=== PATIENT | female | born 1955 | race Caucasian/White ===

== ENCOUNTER 2016-10-14 09:05 | Outpatient (CLI) | payer OTHER | END 2016-10-14 09:06 | disposition home or self-care (01) | DX: N39.0 Urinary tract infection, site not specified (principal) ==

== ENCOUNTER 2017-04-22 15:12 | Outpatient (CLI) | payer OTHER ==
--- NOTE | 2017-04-23 09:29 | XRAY Report ---
THREE-VIEW LEFT ANKLE: 04/22/2017 CLINICAL INDICATION: Trauma, pain. FINDINGS: AP, lateral, oblique views of the left ankle demonstrate no evidence of fracture or disloc ation. Lateral soft tissue swelling is present. No radiopaque foreign body is seen in the soft tiss ues. IMPRESSION: LATERAL SOFT TISSUE SWELLING, BUT NO EVIDENCE OF ACUTE FRACTURE. JOB #: [id number] EXT JOB #:[id number]
--- NOTE | 2017-04-23 10:20 | XRAY Report ---
THREE VIEW LEFT FOOT: 04/22/2017 CLINICAL INDICATION: Pain. FINDINGS: AP, lateral, and oblique views of the left foot demonstrate no evidence of fracture or dis location. Mild degenerative changes are noted in the 1st metatarsophalangeal joint. No radiopaque for eign body is seen in the soft tissues. IMPRESSION: MILD OSTEOARTHRITIS. NO EVIDENCE OF FRACTURE. :9 JOB #: [id number] EXT JOB #:[id number]
== END 2017-04-22 15:13 | disposition home or self-care (01) ==
LOC: DI 15:12
PROVIDERS: ATTEND Nurse Practitioner Family
DX: S99.812A Other specified injuries of left ankle, initial encounter (principal); M19.072 Primary osteoarthritis, left ankle and foot

== ENCOUNTER 2020-10-07 16:43 | Emergency (ER) | payer MEDICARE, OTHER ==
[2020-10-07] MEDS ORDERED: DROPERIDOL 5 MG/2 ML VIAL IVP STA (17:24)
[2020-10-07] MEDS ORDERED: SODIUM CHLORIDE 0.9% 1,000 ML IV STA ×2 (17:25)
--- NOTE | 2020-10-07 17:29 | ED Physician Documentation ---
PD HPI FOCAL NEURO - Stated complaint Stated Complaint: BOSS,NOT THINKING CLEAR - Chief complaint Chief Complaint: Neuro - History obtained from History obtained from: Patient, Family - History of Present Illness Timing - onset: How many hours ago (9) Timing - duration: Hours (9) Timing - details: Gradual onset Severity of deficit: Mild Weakness: No: Face, Arm, Hand, Leg, Foot, Right, Left Numbness: Other (tingling R face and R arm) Associated symptoms: Headache. No: Nausea / vomiting, Seizure, Syncope, Fall, Head injury, Chest pain, Neck pain, Back pain, Fever Contributing factors: negative: Anticoagulated, Vascular dz, Atrial fibrillation, Prosthetic heart valve Baseline status: positive: A&OX3, ambulatory, indep - Additional information Additional information: Patient is a 64-year-old female with a history of migraine headaches. She states normally she does not get a headache with her migraines, she just experiences the aura symptoms. She states her usual symptoms are word finding difficulties, numbness on the right side of her face and right arm. She is experiencing the symptoms today along with a 5 out of 10 headache. Took an Aleve earlier today without relief. Symptoms started about 9 hours prior to arrival. She has had MRIs in the past and is followed by neurology at the [facility]. She states that the symptoms are very typical of her migraines, but seem to be more severe today. Review of Systems Ten Systems: 10 systems reviewed and negative Constitutional: denies: Fever, Chills Ears: denies: Ear pain Nose: denies: Rhinorrhea / runny nose, Congestion Respiratory: denies: Cough GI: denies: Abdominal Pain, Nausea, Vomiting, Diarrhea Skin: denies: Rash Musculoskeletal: denies: Neck pain, Back pain Neurologic: denies: Headache PD PAST MEDICAL HISTORY - Past Medical History Past Medical History: Yes Neuro: Headaches - Past Surgical History Past Surgical History: No - Present Medications Home Medications: Ambulatory Orders Medication Instructions Recorded Confirmed Verapamil HCl [Verelan] 120 mg PO DAILY 10/07/20 10/07/20 - Allergies Allergies/Adverse Reactions: Allergies Allergy/AdvReac Type Severity Reaction Status Date / Time No Known Drug Allergies Allergy Verified 10/07/20 17:08 - Living Situation Living Situation: reports: With family Living Arrangement: reports: At home - Social History Does the pt have substance abuse?: No - Family History Family history: reports: Non contributory PD ED PE NORMAL - Vitals Vital signs reviewed: Yes - General General: Alert and oriented X 3, No acute distress - HEENT HEENT: Atraumatic, PERRL, EOMI, Ears normal, Moist mucous membranes - Neck Neck: Supple, no meningeal sign - Cardiac Cardiac: RRR, Strong equal pulses - Respiratory Respiratory: No respiratory distress, Clear bilaterally - Abdomen Abdomen: Soft, Non tender, Non distended - Back Back: No spinal TTP - Derm Derm: Warm and dry - Extremities Extremities: No edema - Neuro Neuro: Alert and oriented X 3, 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, No motor deficit, No sensory deficit, Normal speech Eye Opening: Spontaneous Motor: Obeys Commands Verbal: Oriented GCS Score: 15 - Psych Psych: Normal mood, Normal affect NIHSS - Time Time: 17:30 - Level of Consciousness Level of consciousness: (0) Alert, Keenly responsive LOC Questions: (0) Answers both Q's correct LOC Commands: (0) Performs both correctly - Gaze Best Gaze: (0) Normal - Visual Visual: (0) No loss - Facial Palsy Facial Palsy: (0) Normal, symmetrical movement - Motor Arms (both separate) Motor Arm (right): (0) No drift Motor Arm (left): (0) No drift - Motor Legs (both separate) Motor Leg (right): (0) No drift Motor Leg (left): (0) No drift - Limb Ataxia Limb Ataxia: (0) Absent - Sensory Sensory: (0) Normal - Best Language Best Language: (1) [id number] - Dysarthria Dysarthria: (0) Normal - Extinction and Inattention (formally neg Extinction and inattention: (0) No abnormality - Total Score/Results Total Score/Result: 1 Results - Vitals Vitals: Vital Signs - 24 hr 10/07/20 10/07/20 10/07/20 16:55 17:22 19:08 Temperature 36.1 C L 36.4 C L 36.3 C L Heart Rate 118 H 76 95 Respiratory 16 12 16 Rate Blood Pressure 196/106 H 129/82 H 150/89 H O2 Saturation 100 100 100 10/07/20 20:01 Temperature 36.1 C L Heart Rate 93 Respiratory 16 Rate Blood Pressure 132/92 H O2 Saturation 99 Oxygen O2 Source Room air - EKG (time done) 1706 Rate: Rate (enter#) (125) Rhythm: Sinus tachycardia [place]: Normal Intervals: Normal CO QRS: Normal Ischemia: Non specific changes - Labs Labs: Laboratory Tests 10/07/20 10/07/20 10/07/20 17:36 17:36 18:44 WBC 7.2 RBC 4.49 Hgb 13.6 Hct 41.6 MCV 92.7 MCH 30.3 MCHC 32.7 RDW 14.2 Plt Count 261 MPV 10.3 Neut # (Auto) 5.8 Lymph # (Auto) 1.0 L Sullivan # (Auto) 0.3 Eos # (Auto) 0.0 Baso # (Auto) 0.0 Absolute Nucleated RBC 0.00 Nucleated RBC % 0.0 Sodium 134 L Potassium 3.9 Chloride 98 L Carbon Dioxide 23 Anion Gap 13.0 BUN 15 Creatinine 0.7 Estimated GFR (MDRD) 84 L Glucose 116 H Calcium 9.6 Total Bilirubin 0.7 AST 20 ALT 16 Alkaline Phosphatase 75 Total Protein 7.5 Albumin 4.7 Globulin 2.8 Albumin/Globulin Ratio 1.7 Urine Color YELLOW Urine Clarity CLEAR Urine pH 6.0 Ur Specific [place] <=1.005 Urine Protein NEGATIVE Urine Glucose (UA) NEGATIVE Urine Ketones TRACE Urine Occult Blood SMALL H Urine Nitrite NEGATIVE Urine Bilirubin NEGATIVE Urine Urobilinogen 0.2 (NORMAL) Ur Leukocyte Esterase NEGATIVE Urine RBC 0-5 Urine WBC 0-3 Ur Squamous Epith Cells RARE Squamous Urine Bacteria Rare Urine Mucus Few Strands Ur Microscopic Review INDICATED Urine Culture Comments NOT INDICATED - Rads (name of study) Angio head Radiology: Prelim report reviewed, EMP read contemporaneously, See rad report CT angio neck Radiology: Prelim report reviewed, EMP read contemporaneously, See rad report PD MEDICAL DECISION MAKING - ED course Complexity details: reviewed results, re-evaluated patient, considered di fferential, d/w patient ED course: Symptoms resolved in the emergency department with treatment of her headache with droperidol. Patient is fully back to normal. No acute findings on CT angiogram of the head or neck. No significant lab findings. This is consistent with her prior episodes. Unlikely to represent a stroke, more likely her usual complex migraine. Patient will follow up with her doctor for further care. Patient counseled regarding signs and symptoms for which I believe and urgent re-evaluation would be necessary. Patient with good understanding of and agreement to plan and is comfortable going home at this time This document was made in part using voice recognition software. While efforts are made to proofread this document, sound alike and grammatical errors may occur. CTA Head IMPRESSION: Negative examination as above CTA neck IMPRESSION: Mild bilateral carotid atherosclerosis. No hemodynamically significant stenosis. Departure - Departure Disposition: 01 Home, Self Care Clinical Impression: Migraine Qualifiers: Migraine type: unspecified Status migrainosus presence: without status migrainosus Intractability: not intractable Qualified Code(s): G43.909 - Migraine, unspecified, not intractable, without status migrainosus Condition: Good Instructions: ED Headache Migraine Follow-Up: Hollie Armstrong ARNP [Primary Care Provider] - Within 1 week Comments: Your testing does not show any acute abnormalities today. Your symptoms seem to have resolved with the treatment of your headache. This would be consistent with your prior history of migraines. Follow-up with your doctor for further care. Return if you worsen Discharge Date/Time: 10/07/20 20:02
[2020-10-07] MEDS ORDERED: IOVERSOL 320 100 ML VIAL IVP ONE ×2 (17:39→18:43)
[2020-10-07 17:55] LABS: BASOPHILS % (AUTO) 0.6 %; EOSINOPHILS % (AUTO) 0.4 %; HCT - HEMATOCRIT 41.6 % (37.0-47.0); HGB - HEMOGLOBIN 13.6 g/dL (12.0-16.0); LYMPHOCYTES % (AUTO) 13.4 %; MEAN CORPUSCULAR HEMOGLOBIN 30.3 pg (27.0-31.0); MEAN CORPUSCULAR HGB CONC 32.7 g/dL (32.0-36.0); MEAN CORPUSCULAR VOLUME 92.7 fL (81.0-99.0); MEAN PLATELET VOLUME 10.3 fL (7.9-10.8); MONOCYTES # (AUTO) 0.3 10^3/uL (0.0-1.0); MONOCYTES % (AUTO) 4.6 %; NEUTROPHILS # (AUTO) 5.8 10^3/uL (1.5-6.6); NEUTROPHILS % (AUTO) 80.7 %; PLT - PLATELET COUNT 261 10^3/uL (130-450); RED BLOOD COUNT 4.49 10^6/uL (4.20-5.40); RED CELL DISTRIBUTION WIDTH 14.2 % (12.0-15.0); WHITE BLOOD COUNT 7.2 x10^3/uL (4.8-10.8)
[2020-10-07 18:06] LABS: ALBUMIN 4.7 g/dL (3.2-5.5); ALBUMIN/GLOBULIN RATIO 1.7 (1.0-2.2); BILIRUBIN,TOTAL 0.7 mg/dL (0.2-1.0); CALCIUM 9.6 mg/dL (8.5-10.3); CREATININE 0.7 mg/dL (0.4-1.0); POTASSIUM 3.9 mmol/L (3.5-5.0); TOTAL PROTEIN 7.5 g/dL (6.7-8.2)
[2020-10-07 18:55] LABS: BILIRUBIN,URINE NEGATIVE (NEGATIVE); GLUCOSE, URINE (UA) NEGATIVE (NEGATIVE); KETONES,URINE (UA) TRACE mg/dL (NEGATIVE); LEUKOCYTE ESTERASE, URINE NEGATIVE (NEGATIVE); NITRITE,URINE NEGATIVE (NEGATIVE); OCCULT BLOOD,URINE SMALL (NEGATIVE); PROTEIN,URINE NEGATIVE (NEGATIVE); UROBILINOGEN,URINE 0.2 (NORMAL) E.U./dL (NORMAL)
[2020-10-07 18:56] LABS: CLARITY,URINE CLEAR (CLEAR)
[2020-10-07 19:07] LABS: RBC,URINE 0-5 /HPF (0-5); WBC,URINE 0-3 /HPF (0-5)
[2020-10-07 19:08] LABS: BACTERIA,URINE Rare /HPF (None Seen); MUCUS,URINE Few Strands; SQUAMOUS EPITHELIAL CELL,UR RARE Squamous (<= Few)
--- NOTE | 2020-10-07 19:37 | CT Report ---
PROCEDURE: ANGIO HEAD W/WO INDICATIONS: R sided numbness, word finding difficulty CONTRAST: IV CONTRAST: Optiray 320 ml: 80 PO CONTRAST: *NO PO CONTRAST TECHNIQUE: Precontrast 4.5 mm thick angled axial sections acquired from the foramen magnum to the vertex. Afte r the administration of intravenous contrast, 1 mm thick sections acquired through the [place] of [place] is. Postcontrast 4.5 mm thick sections then re-acquired from the foramen magnum to the vertex. 3-di mensional nhtanfl-ihvdvvofo-mpvwlobaxg (MIP) and/or volume rendering reformats were acquired of the c entral intracranial vasculature. For radiation dose reduction, the following was used: automated ex posure control, adjustment of mA and/or kV according to patient size. COMPARISON: None. FINDINGS: Image quality: Excellent. Anterior circulation: Intracranial internal carotid arteries are normal in size and flow. The flow within the paired anterior cerebral arteries is normal and symmetric. The flow within the middle cer ebral arteries is normal and symmetric. The anterior communicating artery is seen. No aneurysms are seen. Posterior circulation: Visualized portions of the vertebral arteries demonstrate normal caliber, and join to form a normal appearing basilar artery. Flow within the posterior cerebral arteries is norm al and symmetric. No aneurysms are seen. CSF spaces: Ventricles are normal in size and shape. Basal cisterns are patent. No extra-axial flu id collections. Brain: No midline shift. No intracranial bleeds or masses. Wu-white matter interface appears int act. Skull and face: Calvarium and facial bones appear intact, without suspicious lesions. Sinuses: Visualized sinuses and mastoids are clear. IMPRESSION: Negative examination as above Reviewed by: Donavon Ellis MD on 10/07/2020 7:36 PM PDT Approved by: Donavon Ellis MD on 10/07/2020 7:36 PM PDT Station ID: [id number]
--- NOTE | 2020-10-07 19:43 | CT Report ---
PROCEDURE: ANGIO NECK W INDICATIONS: R sided numbness, word finding difficulty CONTRAST: IV CONTRAST: Optiray 320 ml: 80 PO CONTRAST: *NO PO CONTRAST TECHNIQUE: After the administration of intravenous contrast, 1.5 mm axial sections acquired from the aortic arch to the [place] of [place]. Coronal 3-D maximum intensity projection (MIP) and/or volume rendering ref ormats were then performed. For radiation dose reduction, the following was used: automated exposur e control, adjustment of mA and/or kV according to patient size. COMPARISON: None. FINDINGS: Image quality: Excellent. Carotid system: The great vessels demonstrate a conventional anatomy as they arise from the aortic a rch. The origins of the common carotid arteries appear patent. The common carotid arteries demonstr ate normal calibers and courses. The bifurcation regions appear normal bilaterally. The internal ca rotid arteries demonstrate normal caliber and course. Mild bilateral carotid calcifications. Posterior circulation: The origins of the vertebral arteries appear patent. The more superior porti ons of the vertebral arteries demonstrate normal course and caliber. They join to form a normal appe aring basilar artery. Soft tissues: Visualized neck soft tissues demonstrate no suspicious abnormalities. The thyroid gla nd is normal in size. Bones: No suspicious bony lesions. Visualized cervical spine appears normally aligned. IMPRESSION: Mild bilateral carotid atherosclerosis. No hemodynamically significant stenosis. The estimate of stenosis included in the report of the imaging study was calculated using the NASCET method Reviewed by: Donavon Ellis MD on 10/07/2020 7:41 PM PDT Approved by: Donavon Ellis MD on 10/07/2020 7:41 PM PDT Station ID: [id number]
[2020-10-07 20:43] VITALS: BP 132/92
== END 2020-10-07 20:02 | disposition home or self-care (01) ==
LOC: ED 16:43
DX: G43.909 Migraine, unspecified, not intractable, without status migrainosus (principal); R00.0 Tachycardia, unspecified
CPT/HCPCS: 36415; 70496; 70498; 80053; 81001; 85025; 93005; 96361; 96374; 99284; Q9967; 81003; 87086

== ENCOUNTER 2023-07-28 15:00 | Emergency (ER) | payer MEDICARE, OTHER ==
[2023-07-28] MEDS ORDERED: DROPERIDOL 5 MG/2 ML VIAL IVP STA (15:14)
--- NOTE | 2023-07-28 15:18 | ED Physician Documentation ---
PD HPI ALTERED MENTAL STATUS - Stated complaint Stated Complaint: AMS,WEAKNESS,SPEECH - History obtained from History obtained from: Patient, Family () - Additional information Additional information: 67-year-old woman presents with for what he says is her typical migraine headache. Starting this morning around 730. She felt a headache and confusion and we're finding difficulties. states this is typical for her migraines and she takes something at home today, which did not help.She has had similar stroke like symptoms with migraines in the past. PD PAST MEDICAL HISTORY - Past Medical History Neuro: Headaches - Past Surgical History Past Surgical History: No - Present Medications Home Medications: Ambulatory Orders Medication Instructions Recorded Confirmed Verapamil HCl [Verelan] 120 mg PO DAILY 10/07/20 10/07/20 - Allergies Allergies/Adverse Reactions: Allergies Allergy/AdvReac Type Severity Reaction Status Date / Time No Known Drug Allergies Allergy Verified 07/28/23 15:18 - Social History Does the pt smoke?: No Smoking Status: Never smoker Does the pt have substance abuse?: No PD ED PE NORMAL - Vitals Vital signs reviewed: Yes - General General: Other (alert, can say name, otherwise not talking) - HEENT HEENT: PERRL, Pharynx benign - Neck Neck: Supple, no meningeal sign - Cardiac Cardiac: RRR, No murmur - Respiratory Respiratory: No respiratory distress - Abdomen Abdomen: Non tender - Neuro Neuro: No motor deficit, No sensory deficit Eye Opening: Spontaneous Motor: Obeys Commands Verbal: Confused GCS Score: 14 Results - Vitals Vitals: Vital Signs - 24 hr 07/28/23 07/28/23 07/28/23 15:04 16:13 18:27 Temperature 35.8 C L Heart Rate 104 H 96 99 Respiratory 17 15 14 Rate Blood Pressure 158/78 H 158/92 H 144/83 H O2 Saturation 100 100 95 Oxygen O2 Source Room air - Rads (name of study) CT of the head is unremarkable Relevant Findings:: Final report received, EMP independent interpretation of test PD Medical Decision Making - ED course ED course: 67-year-old woman with history of migraines presents with pretty significant confusion but otherwise a nonfocal exam in the setting of headache. Her is adamant that this is her usual migraine syndrome and this has happened before. In fact her review of the chart shows that in September 2020 she was seen here for similar symptoms and received droperidol with improvement in her s ymptoms. Similarly tonight patient's requested the same thing she got last time and she was given 2.5 mg of droperidol. After a while she was reexamined but improved but still having some word finding difficulties but she was saying her headache really was not much better at that point either. This was followed by IV Compazine and Toradol and the decision was made to get a head CT which was otherwise unremarkable. On reexamination phimosis before 7 PM she is significantly improved albeit not completely back to normal, still having some mild word finding difficulties but certainly much better than when she got here. I offered observation in the hospital but patient and would like to go home feeling like she will be better in the morning. Advised to return in the morning if not better. Departure - Departure Disposition: 01 Home, Self Care Clinical Impression: Migraine Qualifiers: Migraine type: unspecified Status migrainosus presence: with status migrainosus Intractability: intractable Qualified Code(s): G43.911 - Migraine, unspecified, intractable, with status migrainosus Condition: Good Record reviewed to determine appropriate education?: Yes Instructions: ED Headache Migraine Comments: You have had significant improvement with your symptoms with a couple doses of migraine medication. That said you are still having some persistent albeit significantly improved word finding difficulties and recommend return in the morning if not back to normal 100%.
[2023-07-28] MEDS ORDERED: PROCHLORPERAZINE 10 MG/2 ML VIAL IVP STA (16:20)
[2023-07-28] MEDS ORDERED: KETOROLAC 15 MG/ML VIAL IVP STA (16:46)
[2023-07-28 18:29] VITALS: BP 144/83; O2SAT 95
--- NOTE | 2023-07-28 18:40 | CT Report ---
PROCEDURE: Head WO INDICATIONS: ams TECHNIQUE: Noncontrast 4.5 mm thick angled axial sections acquired from the foramen magnum to the vertex. For r adiation dose reduction, the following was used: automated exposure control, adjustment of mA and/or kV according to patient size. COMPARISON: Correlation is made with prior head CT angiogram, 10/07/2020 FINDINGS: Image quality: Excellent. CSF spaces: Basal cisterns are patent. No extra-axial fluid collections. Ventricles are normal in size and shape. Brain: No midline shift. No intracranial masses or hemorrhage. Wu-white matter interface is norm al. Skull and face: Calvarium and visualized facial bones are intact, without suspicious lesions. Sinuses: Visualized sinuses and mastoids are clear. IMPRESSION: No acute intracranial pathology. Reviewed by: Romie Stewart MD on 07/28/2023 5:38 PM [facility] Approved by: Romie Stewart MD on 07/28/2023 5:38 PM [facility] Station ID: [id number]
== END 2023-07-28 19:00 | disposition home or self-care (01) ==
LOC: ED 15:00
DX: G43.911 Migraine, unspecified, intractable, with status migrainosus (principal)
CPT/HCPCS: 36415; 96374; 96375; 99284

== ENCOUNTER 2024-02-09 12:28 | Outpatient (CLI) | payer MEDICARE, OTHER ==
--- NOTE | 2024-02-09 18:05 | XRAY Report ---
PROCEDURE: Ankle 3+V RT INDICATIONS: SPRAIN OF RT ANKLE TECHNIQUE: 3 views of the ankle were acquired. COMPARISON: None. FINDINGS: Bones: Suspected tiny avulsion fracture of the lateral medial malleolus. Ankle mortise is maintained . Soft tissues: Large tibiotalar joint effusion. Achilles tendon appears normal. Swelling about the ankle. IMPRESSION: Suspected avulsion fracture of the lateral malleolus, with significant swelling and large tibiotalar effusion. Reviewed by: Rayo You MD on 02/09/2024 5:04 PM [facility] Approved by: Rayo You MD on 02/09/2024 5:04 PM [facility] Station ID: [id number]
== END 2024-02-09 12:29 | disposition home or self-care (01) ==
LOC: DI.S 12:28
DX: S93.401A Sprain of unspecified ligament of right ankle, initial encounter (principal)